=== PATIENT | female | born 1940 | race Hispanic/Latino ===

== ENCOUNTER 2019-01-30 13:41 | Outpatient (CLI) | payer MEDICARE ==
--- NOTE | 2019-01-30 16:01 | Mammography Report ---
BONE DEXA CLINICAL: Postmenopausal. TECHNIQUE: 2 site bone DEXA performed on an Hologic scanner. FINDINGS: The average BMD of the lumbar spine L1-L4 is 0.845g/cm squared with a T score of -1.8 and a Z score o f +0.8. The average total BMD of the left hip is 0.760 g/cm squared with a T score of -1.5and a Z score of +0 .5. IMPRESSION: 1. WHO classification: Osteopenia with increased fracture risk based on spine measurements. 2. WHO classification Osteopenia with increased fracture risk based on left hip measurements. RECOMMENDATION: Clinical correlation and routine screening. Definitions: BMD equal bone mineral density T score = BMD related to peak bone mass of young adult (Barbara expressed an standard deviation) Z score = age-matched BMD expressed in SD World health organization (WHO) diagnostic criteria Normal T score greater than equal to 1 standard deviation Osteopenia T score between -1 and -2.4 standard deviation Osteoporosis T score -2.5 standard deviation or below. Note: BMD is not the only risk factor for fracture; also consider factors such as the patient's age, risk of falling, previous osteoporotic fracture, family history of osteoporotic fractures, current sm oker and low body weight. Z scores are not calculated if greater than 80 years of age. Signer Name: Narinder León MD Signed: 01/30/2019 3:56 PM Workstation Name: [id number]
== END 2019-01-30 13:42 | disposition home or self-care (01) ==
LOC: SPVWC 13:41
PROVIDERS: ATTEND Family Medicine
DX: M85.89 Other specified disorders of bone density and structure, multiple sites (principal); Z78.0 Asymptomatic menopausal state
CPT/HCPCS: 77080

== ENCOUNTER 2021-09-01 10:23 | Outpatient (CLI) | payer MEDICARE ==
--- NOTE | 2021-09-01 12:30 | Mammography Report ---
DEXA BONE DENSITY SCAN INDICATION / CLINICAL INFORMATION: OSTEOPENIA OF MULTIPLE SITES. 80 years Female COMPARISON: DEXA scan from 01/30/2019 LUMBAR SPINE, L1-L4: - Bone mineral density (BMD) = 0.837 g/cm2. - T-score = -1.9 - Z-score = 0.8 Change (%) since most recent prior (if available): 0.9% decrease LEFT HIP, TOTAL : - Bone mineral density (BMD) = 0.723 g/cm2. - T-score = -1.8 - Z-score = 0.4 Change (%) since most recent prior (if available): 4% decrease IMPRESSION: 1. WHO Classification: Osteopenia. Fracture Risk: Increased. Note: 10-Year Fracture Risk (FRAX) not reported. This DEXA unit lacks FRAX functionality. BMD Reporting Guidelines (ISCD, 2015) BMD Reporting in Postmenopausal Women and in Men Age 50 and Older - T-scores are preferred. - The WHO densitometric classification is applicable. BMD Reporting in Females Prior to Menopause and in Males Younger Than Age 50 - Z-scores, not T-scores, are preferred. This is particularly important in children. - A Z-score of -2.0 or lower is defined as below the expected range for age, and a Z-score above -2.0 is within the expected range for age. - Osteoporosis cannot be diagnosed in men under age 50 on the basis of BMD alone. - The WHO diagnostic criteria may be applied to women in the menopausal transition. http://www.iscd.org/official-positions/9250-ywpz-lxlepxmr-positions-adult/ Signer Name: Markus Lainez MD Signed: 09/01/2021 12:25 PM Workstation Name: [id number]
== END 2021-09-01 10:24 | disposition home or self-care (01) ==
LOC: SPVWC 10:23
PROVIDERS: ATTEND Family Medicine
DX: M85.88 Other specified disorders of bone density and structure, other site (principal)
CPT/HCPCS: 77080